=== PATIENT | female | born 1980 | race Caucasian/White ===

== ENCOUNTER 2018-09-04 16:42 | Emergency (ER) | payer MEDICAID ==
[~2018-09-04] VITALS: Ht 165.1 cm; Wt 100.0 kg
[2018-09-04] MEDS ORDERED: morphine 4 MG/ML inj SYRINge IM ONE (17:10)
[2018-09-04] MEDS ORDERED: ondansetron 4mg rapidly disintigrating tab PO ONE (17:10)
[2018-09-04] MEDS ORDERED: BUPIVAcaine/PF 2.5 mg/ml (0.25%) 30ml vial IJ ONE (17:25)
[2018-09-04] MEDS ORDERED: BUPIVAcaine/PF 2.5mg/ml (0.25%) 10ml vial IJ ONE (17:35)
[2018-09-04] MEDS ORDERED: etomidate 2mg/ml inj. IV ONE (19:30)
[2018-09-04] MEDS ORDERED: HYDR-4383 PO (20:08)
[2018-09-04 20:16] VITALS: BP 138/79
== END 2018-09-04 20:27 | disposition home or self-care (01) ==
LOC: ER 16:43
DX: S52.592A Other fractures of lower end of left radius, initial encounter for closed fracture (principal); S52.612A Displaced fracture of left ulna styloid process, initial encounter for closed fracture; Z88.2 Allergy status to sulfonamides; W01.198A Fall on same level from slipping, tripping and stumbling with subsequent striking against other object, initial encounter; Y93.89 Activity, other specified; Y92.89 Other specified places as the place of occurrence of the external cause; Y99.9 Unspecified external cause status
CPT/HCPCS: 25605; 73100; 73110; 96372; 99285; J2270; J3490

== ENCOUNTER 2018-09-09 13:17 | Outpatient (CLI) | payer MEDICAID ==
[~2018-09-09] VITALS: Ht 165.1 cm; Wt 112.4 kg
[2018-09-09 13:00] VITALS: BP 118/74
[~2018-09-09 13:17] MED LIST: HYDR-4383 PO
[2018-09-09 16:58] VITALS: BP 118/74
[2018-09-15] MEDS ORDERED: HYDR-3965 PO (12:23)
== END 2018-09-09 13:42 | disposition home or self-care (01) ==
LOC: ORTHO 13:17
PROVIDERS: ATTEND Nurse Practitioner Family
DX: S52.612A Displaced fracture of left ulna styloid process, initial encounter for closed fracture (principal); S59.292A Other physeal fracture of lower end of radius, left arm, initial encounter for closed fracture; E78.00 Pure hypercholesterolemia, unspecified; F17.200 Nicotine dependence, unspecified, uncomplicated; Z88.2 Allergy status to sulfonamides; Z90.49 Acquired absence of other specified parts of digestive tract; W19.XXXA Unspecified fall, initial encounter; Y93.89 Activity, other specified; Y92.89 Other specified places as the place of occurrence of the external cause; Y99.8 Other external cause status
CPT/HCPCS: 99213

== ENCOUNTER 2018-09-16 11:55 | Day surgery (SDC) | payer MEDICAID ==
[2018-09-12 14:41] LABS: BASOPHILS % (AUTO) 0.3 % (0-1); EOSINOPHILS # (AUTO) 0.2 X10'3 (0-0.9); EOSINOPHILS % (AUTO) 2.7 % (0-6); LYMPHOCYTES % (AUTO) 24.4 % (21-51); MEAN CORPUSCULAR HGB CONC 33.3 % (33.0-36.5); MEAN CORPUSCULAR VOLUME 78.3 FL (78-98); MEAN PLATELET VOLUME 7.9 FL (7.4-10.4); MONOCYTES # (AUTO) 0.5 X10'3 (0-0.9); MONOCYTES % (AUTO) 6.1 % (2-12); NEUTROPHILS # (AUTO) 5.6 X10'3 (1.8-7.7); NEUTROPHILS % (AUTO) 66.5 % (42-75); PRE OP HEMATOCRIT 32.2 % (35.0-45.0); PRE OP PLATELET COUNT 297 X10'3 (140-440); RED BLOOD COUNT 4.12 X10'6 (4.20-5.60); RED CELL DISTRIBUTION WIDTH 15.3 % (11.5-14.5)
[2018-09-12 14:44] LABS: PRE OP HEMOGLOBIN 10.7 g/dL (12.0-16.0)
[2018-09-12 14:57] LABS: ALBUMIN 3.7 G/DL (3.4-5.0); ALBUMIN/GLOBULIN RATIO 1.1 (1.1-1.5); ALKALINE PHOSPHATASE 63 IU/L (46-116); BLOOD UREA NITROGEN 12 MG/DL (7-18); BUN/CREATININE RATIO 12.5 (6.6-38.0); CALCIUM 8.7 MG/DL (8.5-10.1); CHLORIDE 107 MMOL/L (99-107); CREATININE 0.96 MG/DL (0.40-0.90); PRE OP ALT 24 U/L (30-65); PRE OP ANION GAP 8 (8-16); PRE OP AST 16 U/L (10-37); PRE OP BILIRUB, TOTAL 0.3 MG/DL (0.0-1.0); PRE OP GLUCOSE 107 MG/DL (70-104); PRE OP POTASSIUM 3.8 MMOL/L (3.4-5.1); PRE OP SODIUM 141 MMOL/L (135-145); TOTAL CARBON DIOXIDE 26.1 MMOL/L (24-32); eGFR 65 ML/MIN
[2018-09-16] VITALS (9 sets, daily range): BP systolic 130–149; BP diastolic 80–90
[~2018-09-16] VITALS: Ht 165.1 cm; Wt 113.7 kg
[~2018-09-16 11:55] MED LIST changes: +HYDR-3965 PO; -HYDR-4383 PO; +cefazolin/dext.iso 2gm/100 ML IV ONE; +famotidine 20mg tablet PO ONE; +ringers solution, lacted 1,000 ML IV SCH; +vancomycin inj 1,500 MG in normal saline 300ml IV soln IV ONE
[2018-09-16] MEDS ORDERED: LIDOcaine 1% (10mg/ml) 2ml vial ONE (13:14)
[2018-09-16] MEDS ORDERED: BUPIVAcaine/PF 2.5mg/ml (0.25%) 10ml vial ONE (13:57)
[2018-09-16] MEDS ORDERED: ringers solution, lacted 1,000 ML IV SCH (14:56)
[2018-09-16] MEDS ORDERED: proCHLORperazine 10 MG/2 ml inj IV PRN (15:00)
[2018-09-16] MEDS ORDERED: ondansetron/PF 4mg/2ml inj IV PRN (15:00)
[2018-09-16] MEDS ORDERED: morphine 4 MG/ML inj SYRINge IV PRN ×2 (15:00)
[2018-09-16] MEDS ORDERED: meperidine/PF 25mg/ml syringe IV PRN ×3 (15:00)
[2018-09-16] MEDS ORDERED: sevoflurane 250ml liquid IH ONE (16:35)
[2018-09-16] MEDS ORDERED: MIDAZolam 5mg/5ml vial ONE (16:36)
[2018-09-16] MEDS ORDERED: ROPIVAcaine 0.5% (5mg/ml) 30ml vial ONE ×2 (16:36→17:03)
[2018-09-16] MEDS ORDERED: fentaNYL/PF 50MCG/1 ML 2ML syringe ONE ×2 (16:36→17:19)
[2018-09-16] MEDS ORDERED: LIDOcaine 1%/PF 5ML 10 MG/ML VIAL ONE (16:55)
[2018-09-16] MEDS ORDERED: propofol inj 20 ML IV ONE (16:55)
[2018-09-16] MEDS ORDERED: ondansetron/PF 4mg/2ml inj ONE (18:20)
[2018-09-16] MEDS ORDERED: ketorolac trometh. 30mg/ml inj. ONE (18:20)
[2018-09-16] MEDS ORDERED: dexamethasone sod phosphate 4mg/ml inj. ONE (18:20)
[2018-09-16] MEDS ORDERED: HYDROcodone/acetaminophen 10/325mg tab PO ONE (19:20)
== END 2018-09-16 19:47 | disposition home or self-care (01) ==
LOC: PAS 11:55
PROVIDERS: ATTEND Orthopaedic Surgery
DX: S52.552A Other extraarticular fracture of lower end of left radius, initial encounter for closed fracture (principal); M25.032 Hemarthrosis, left wrist; G89.18 Other acute postprocedural pain; E66.01 Morbid (severe) obesity due to excess calories; E78.00 Pure hypercholesterolemia, unspecified; Z88.2 Allergy status to sulfonamides; Z86.69 Personal history of other diseases of the nervous system and sense organs; Z90.49 Acquired absence of other specified parts of digestive tract; Z68.41 Body mass index [BMI] 40.0-44.9, adult; Z98.51 Tubal ligation status; Z79.891 Long term (current) use of opiate analgesic; Z98.890 Other specified postprocedural states; W19.XXXA Unspecified fall, initial encounter; Y93.89 Activity, other specified; Y92.89 Other specified places as the place of occurrence of the external cause; Y99.8 Other external cause status
CPT/HCPCS: 25607; 36415; 64415; 71046; 80053; 85025; 93005; A6449; C1713; J0690; J1100; J1885; J2001; J2175; J2250; J2405; J2704; J3010; J3370; J3490; A7000; J2795; J7120

== ENCOUNTER 2018-09-30 11:37 | Outpatient (CLI) | payer MEDICAID ==
[2018-09-30 11:37] VITALS: BP 102/71
[~2018-09-30 11:37] MED LIST changes: -cefazolin/dext.iso 2gm/100 ML IV ONE; -famotidine 20mg tablet PO ONE; -ringers solution, lacted 1,000 ML IV SCH; -vancomycin inj 1,500 MG in normal saline 300ml IV soln IV ONE
== END 2018-09-30 12:39 | disposition home or self-care (01) ==
LOC: ORTHO 11:37
PROVIDERS: ATTEND Nurse Practitioner Family
DX: S52.592D Other fractures of lower end of left radius, subsequent encounter for closed fracture with routine healing (principal); S52.612D Displaced fracture of left ulna styloid process, subsequent encounter for closed fracture with routine healing; Z56.0 Unemployment, unspecified; Z88.2 Allergy status to sulfonamides; W18.39XD Other fall on same level, subsequent encounter
CPT/HCPCS: 73100; 99213; A4590

== ENCOUNTER 2018-10-15 09:58 | Outpatient (CLI) | payer MEDICAID ==
[2018-10-15 09:45] VITALS: BP 119/81
== END 2018-10-15 10:42 | disposition home or self-care (01) ==
LOC: ORTHO 09:58
PROVIDERS: ATTEND Nurse Practitioner Family
DX: S52.592D Other fractures of lower end of left radius, subsequent encounter for closed fracture with routine healing (principal); S52.612G Displaced fracture of left ulna styloid process, subsequent encounter for closed fracture with delayed healing; Z88.2 Allergy status to sulfonamides; W19.XXXD Unspecified fall, subsequent encounter
CPT/HCPCS: 73100; 99213; A4590

== ENCOUNTER 2018-11-05 10:08 | Outpatient (CLI) | payer MEDICAID ==
[2018-11-05 11:01] VITALS: BP 125/76
== END 2018-11-05 11:34 | disposition home or self-care (01) ==
LOC: ORTHO 10:08
PROVIDERS: ATTEND Nurse Practitioner Family
DX: S52.592D Other fractures of lower end of left radius, subsequent encounter for closed fracture with routine healing (principal); S52.512 Displaced fracture of left radial styloid process; M19.032 Primary osteoarthritis, left wrist; Z56.0 Unemployment, unspecified; Z88.2 Allergy status to sulfonamides; W19.XXXD Unspecified fall, subsequent encounter
CPT/HCPCS: 73100; 99213

== ENCOUNTER 2018-11-19 10:17 | Outpatient (CLI) | payer MEDICAID ==
[2018-11-19 10:17] VITALS: BP 138/82
== END 2018-11-19 10:49 | disposition home or self-care (01) ==
LOC: ORTHO 10:17
PROVIDERS: ATTEND Nurse Practitioner Family
DX: S52.592G Other fractures of lower end of left radius, subsequent encounter for closed fracture with delayed healing (principal); S52.612G Displaced fracture of left ulna styloid process, subsequent encounter for closed fracture with delayed healing; Z56.0 Unemployment, unspecified; Z88.2 Allergy status to sulfonamides; W19.XXXD Unspecified fall, subsequent encounter
CPT/HCPCS: 73100; 99213

== ENCOUNTER 2018-12-02 08:58 | Outpatient (CLI) | payer MEDICAID ==
[2018-12-02 08:48] VITALS: BP 135/80
== END 2018-12-02 09:37 | disposition home or self-care (01) ==
LOC: ORTHO 08:58
PROVIDERS: ATTEND Nurse Practitioner Family
DX: S52.592D Other fractures of lower end of left radius, subsequent encounter for closed fracture with routine healing (principal); S52.612D Displaced fracture of left ulna styloid process, subsequent encounter for closed fracture with routine healing; Z98.890 Other specified postprocedural states; Z88.2 Allergy status to sulfonamides; W19.XXXD Unspecified fall, subsequent encounter
CPT/HCPCS: 73100; G0463

== ENCOUNTER 2018-12-23 08:54 | Outpatient (CLI) | payer MEDICAID ==
[2018-12-23 08:51] VITALS: BP 145/91
== END 2018-12-23 09:58 | disposition home or self-care (01) ==
LOC: ORTHO 08:54
PROVIDERS: ATTEND Nurse Practitioner Family
DX: S52.592D Other fractures of lower end of left radius, subsequent encounter for closed fracture with routine healing (principal); S52.612D Displaced fracture of left ulna styloid process, subsequent encounter for closed fracture with routine healing; Z56.0 Unemployment, unspecified; Z88.2 Allergy status to sulfonamides; W19.XXXD Unspecified fall, subsequent encounter
CPT/HCPCS: 73100; 99213

== ENCOUNTER 2019-01-20 09:15 | Outpatient (CLI) | payer MEDICAID ==
[2019-01-20 09:01] VITALS: BP 131/89
== END 2019-01-20 09:21 | disposition home or self-care (01) ==
LOC: ORTHO 09:15
PROVIDERS: ATTEND Nurse Practitioner Family
DX: S52.592D Other fractures of lower end of left radius, subsequent encounter for closed fracture with routine healing (principal); S52.612K Displaced fracture of left ulna styloid process, subsequent encounter for closed fracture with nonunion; G40.89 Other seizures; Z98.890 Other specified postprocedural states; Z88.2 Allergy status to sulfonamides; W19.XXXD Unspecified fall, subsequent encounter
CPT/HCPCS: 73100; 99213

== ENCOUNTER 2019-10-30 17:40 | Emergency (ER) | payer MEDICAID ==
[~2019-10-30] VITALS: Ht 165.1 cm; Wt 100.0 kg
[2019-10-31] MEDS ORDERED: ondansetron 4mg rapidly disintigrating tab PO ONE (00:10)
[2019-10-31] MEDS ORDERED: acetaminophen 325mg tablet PO ONE (00:10)
[2019-10-31] MEDS ORDERED: albuterol 2.5 MG/3 ML nebule NEB ONE (01:35)
[2019-10-31] MEDS ORDERED: ondansetron/PF 4mg/2ml inj IV ONE (01:35)
[2019-10-31] MEDS ORDERED: morphine 2 MG/ML inj. syringe IV PRN (01:35)
[2019-10-31] MEDS ORDERED: normal saline 1000ML IV soln IVB ONE (01:35)
[2019-10-31 02:17] LABS: BASOPHILS % (AUTO) 0.3 % (0-1); EOSINOPHILS % (AUTO) 0.3 % (0-6); HEMATOCRIT 32.8 % (35.0-45.0); HEMOGLOBIN 10.9 g/dl (12.0-16.0); LYMPHOCYTES # (AUTO) 1.8 X10'3 (1.1-4.8); LYMPHOCYTES % (AUTO) 21.7 % (21-51); MEAN CORPUSCULAR HEMOGLOBIN 25.1 PG (27.0-31.0); MEAN CORPUSCULAR HGB CONC 33.4 g/dL (33.0-36.5); MEAN CORPUSCULAR VOLUME 75.3 FL (78-98); MONOCYTES # (AUTO) 0.8 X10'3 (0-0.9); MONOCYTES % (AUTO) 9.7 % (2-12); NEUTROPHILS # (AUTO) 5.7 X10'3 (1.8-7.7); PLATELET COUNT 227 X10'3 (140-440); RED BLOOD COUNT 4.35 X10'6 (4.20-5.60); RED CELL DISTRIBUTION WIDTH 16.1 % (11.5-14.5); WHITE BLOOD COUNT 8.3 X10'3 (4.5-11.0)
[2019-10-31 02:26] LABS: ALANINE AMINOTRANSFERASE 40 U/L (12-78); ALBUMIN 3.8 G/DL (3.4-5.0); ALKALINE PHOSPHATASE 75 IU/L (46-116); ANION GAP 9 (8-16); ASPARTATE AMINO TRANSFERASE 24 U/L (10-37); BILIRUBIN,TOTAL 0.4 MG/DL (0.1-1.0); BLOOD UREA NITROGEN 7 MG/DL (7-18); BUN/CREATININE RATIO 7.4 (6.6-38.0); CALCIUM 8.5 MG/DL (8.5-10.1); CHLORIDE 102 MMOL/L (99-107); CREATININE 0.94 MG/DL (0.40-0.90); GLUCOSE 121 MG/DL (70-104); MAGNESIUM 2.1 MG/DL (1.5-2.4); POTASSIUM 3.2 MMOL/L (3.5-5.1); SODIUM 137 MMOL/L (135-145); TOTAL CARBON DIOXIDE 25.8 MMOL/L (24-32); TOTAL PROTEIN 7.5 G/DL (6.4-8.2); eGFR 67 ML/MIN
[2019-10-31] MEDS ORDERED: ONDA4TAB6 PO (02:33)
[2019-10-31 03:46] VITALS: BP 112/49
== END 2019-10-31 03:53 | disposition home or self-care (01) ==
LOC: ER 17:41
DX: E87.6 Hypokalemia (principal); J10.1 Influenza due to other identified influenza virus with other respiratory manifestations; E78.00 Pure hypercholesterolemia, unspecified; R11.2 Nausea with vomiting, unspecified; Z56.0 Unemployment, unspecified; Z90.49 Acquired absence of other specified parts of digestive tract; Z88.2 Allergy status to sulfonamides
CPT/HCPCS: 36415; 71046; 80053; 83735; 85025; 87502; 87503; 94640; 96360; 99284; J7030; 94760

== ENCOUNTER 2022-11-25 02:22 | Emergency (ER) | payer MEDICAID ==
[~2022-11-25] VITALS: Ht 165.1 cm; Wt 81.8 kg
[~2022-11-25 02:22] MED LIST changes: +ONDA4TAB6 PO
[2022-11-25 02:29] VITALS: BP 132/79
[2022-11-25] MEDS ORDERED: normal saline 1000ML IV soln IVB ONE (02:45)
[2022-11-25] MEDS ORDERED: diphenhydrAMINE 50 mg/ml inj IV ONE (02:55)
[2022-11-25] MEDS ORDERED: acetaminophen 325mg tablet PO ONE (02:55)
[2022-11-25 03:15] LABS: BASOPHILS % (AUTO) 0.4 % (0-1); EOSINOPHILS # (AUTO) 0.2 X10'3 (0-0.9); EOSINOPHILS % (AUTO) 1.9 % (0-6); HEMATOCRIT 33.7 % (35.0-45.0); HEMOGLOBIN 11.5 g/dl (12.0-16.0); LYMPHOCYTES # (AUTO) 2.3 X10'3 (1.1-4.8); LYMPHOCYTES % (AUTO) 21.5 % (21-51); MEAN CORPUSCULAR HEMOGLOBIN 27.1 PG (27.0-31.0); MEAN CORPUSCULAR HGB CONC 34.1 g/dL (33.0-36.5); MEAN CORPUSCULAR VOLUME 79.4 FL (78-98); MEAN PLATELET VOLUME 7.6 FL (7.4-10.4); MONOCYTES % (AUTO) 9.1 % (2-12); NEUTROPHILS # (AUTO) 7.1 X10'3 (1.8-7.7); NEUTROPHILS % (AUTO) 67.1 % (42-75); PLATELET COUNT 258 X10'3 (140-440); RED BLOOD COUNT 4.24 X10'6 (4.20-5.60); WHITE BLOOD COUNT 10.6 X10'3 (4.5-11.0)
[2022-11-25 03:27] LABS: ALANINE AMINOTRANSFERASE 22 U/L (12-78); ALBUMIN 3.9 G/DL (3.4-5.0); ALBUMIN/GLOBULIN RATIO 1.1 (1.1-1.5); ALKALINE PHOSPHATASE 75 IU/L (46-116); ANION GAP 10 (8-16); ASPARTATE AMINO TRANSFERASE 19 U/L (10-37); BILIRUBIN,TOTAL 0.3 MG/DL (0.1-1.0); BLOOD UREA NITROGEN 13 MG/DL (7-18); BUN/CREATININE RATIO 16.3 (6.6-38.0); CALCIUM 8.7 MG/DL (8.5-10.1); CHLORIDE 104 MMOL/L (99-107); GLUCOSE 105 MG/DL (70-104); LIPASE 70 U/L (73-393); POTASSIUM 3.4 MMOL/L (3.5-5.1); SODIUM 139 MMOL/L (135-145); TOTAL CARBON DIOXIDE 25.3 MMOL/L (24-32); TOTAL PROTEIN 7.3 G/DL (6.4-8.2); URINE HCG NEGATIVE (NEG); eGFR 79 ML/MIN
== END 2022-11-25 04:55 | disposition home or self-care (01) ==
LOC: ER 02:23
DX: J06.9 Acute upper respiratory infection, unspecified (principal); Z20.822 Contact with and (suspected) exposure to COVID-19; J02.9 Acute pharyngitis, unspecified; R11.10 Vomiting, unspecified
CPT/HCPCS: 36415; 71045; 80053; 81025; 83690; 85025; 87502; 87503; 87635; 96361; 96374; 99284; C9803; J1200; J7030; A4358

== ENCOUNTER 2023-09-15 22:00 | Emergency (ER) | payer MEDICAID ==
[~2023-09-15] VITALS: Ht 165.1 cm; Wt 108.0 kg
[2023-09-15] MEDS ORDERED: acetaminophen 325mg tablet PO ONE (22:15)
[2023-09-15 22:33] LABS: URINE HCG NEGATIVE (NEG)
[2023-09-15 22:52] LABS: BILIRUBIN,URINE NEGATIVE (Neg); CLARITY,URINE CLOUDY (Clear); COLOR,URINE STRAW (Yellow); GLUCOSE, URINE NEGATIVE (Neg); KETONES,URINE NEGATIVE (Neg); LEUKOCYTE ESTERASE ,URINE SMALL (Neg); NITRITES, URINE NEGATIVE (Neg); OCCULT BLOOD,URINE MODERATE (Neg); PH,URINE 7.5 (4.8-8.0); PROTEIN,URINE 30 mg/dl (Neg)
[2023-09-15 22:59] LABS: UA COLLECTION TYPE CLN CATCH MIDSTREAM
[2023-09-15 23:00] LABS: MUCUS STRANDS MODERATE /LPF (Neg); SQUAMOUS EPITHELIAL CELL,UR MANY /LPF (FEW)
[2023-09-15 23:01] LABS: BACTERIA,URINE 3+ /HPF (Neg); WBC,URINE TNTC /HPF (0-4)
[2023-09-15] MEDS ORDERED: CefTRIAXone/D5W-Rocephin 1gm 50 ML IV ONE (23:35)
[2023-09-15] MEDS ORDERED: ondansetron/PF 4mg/2ml inj IV ONE (23:35)
[2023-09-15] MEDS ORDERED: ketorolac trometh. 30mg/ml inj. IV ONE (23:35)
[2023-09-15] MEDS ORDERED: normal saline 1000ml 1,000 ML IV ONE (23:35)
[2023-09-15 23:37] LABS: BASOPHILS % (AUTO) 0.3 % (0-1); EOSINOPHILS % (AUTO) 0.2 % (0-6); HEMATOCRIT 35.4 % (35.0-45.0); HEMOGLOBIN 11.8 g/dl (12.0-16.0); LYMPHOCYTES # (AUTO) 1.2 X10'3 (1.1-4.8); LYMPHOCYTES % (AUTO) 10.8 % (21-51); MEAN CORPUSCULAR HEMOGLOBIN 26.8 PG (27.0-31.0); MEAN CORPUSCULAR HGB CONC 33.2 g/dL (33.0-36.5); MEAN CORPUSCULAR VOLUME 80.7 FL (78-98); MEAN PLATELET VOLUME 8.1 FL (7.4-10.4); MONOCYTES # (AUTO) 0.9 X10'3 (0-0.9); MONOCYTES % (AUTO) 8.2 % (2-12); NEUTROPHILS # (AUTO) 8.9 X10'3 (1.8-7.7); NEUTROPHILS % (AUTO) 80.5 % (42-75); PLATELET COUNT 213 X10'3 (140-440); RED BLOOD COUNT 4.39 X10'6 (4.20-5.60); RED CELL DISTRIBUTION WIDTH 14.9 % (11.5-14.5)
[2023-09-15 23:43] LABS: ALANINE AMINOTRANSFERASE 28 U/L (12-78); ALBUMIN 3.5 G/DL (3.4-5.0); ALKALINE PHOSPHATASE 81 IU/L (46-116); ANION GAP 9 (8-16); ASPARTATE AMINO TRANSFERASE 24 U/L (10-37); BILIRUBIN,TOTAL 0.4 MG/DL (0.1-1.0); BLOOD UREA NITROGEN 12 MG/DL (7-18); BUN/CREATININE RATIO 12.9 (10.0-20.0); CALCIUM 8.9 MG/DL (8.5-10.1); CHLORIDE 102 MMOL/L (99-107); CREATININE 0.93 MG/DL (0.40-0.90); GLUCOSE 116 MG/DL (70-104); LIPASE 23 U/L (16-77); POTASSIUM 3.8 MMOL/L (3.5-5.1); SODIUM 135 MMOL/L (135-145); eCRCL 71 ML/MIN; eGFR 66 ML/MIN
[2023-09-16 00:17] LABS: BILIRUBIN,URINE NEGATIVE (Neg); CLARITY,URINE CLOUDY (Clear); COLOR,URINE STRAW (Yellow); GLUCOSE, URINE NEGATIVE (Neg); KETONES,URINE NEGATIVE (Neg); LEUKOCYTE ESTERASE ,URINE MODERATE (Neg); NITRITES, URINE NEGATIVE (Neg); OCCULT BLOOD,URINE SMALL (Neg); PROTEIN,URINE NEGATIVE (Neg); UROBILINOGEN,URINE 0.2 E.U/dL (0.2-1.0)
[2023-09-16 00:22] LABS: UA COLLECTION TYPE CLN CATCH MIDSTREAM
[2023-09-16 00:24] LABS: SQUAMOUS EPITHELIAL CELL,UR MANY /LPF (FEW)
[2023-09-16 00:25] LABS: TRANSITIONAL EPI CELLS,URINE FEW /HPF; WBC,URINE 30-50 /HPF (0-4)
[2023-09-16 00:26] LABS: BACTERIA,URINE 2+ /HPF (Neg); RBC,URINE 0-2 /HPF (0-2)
[2023-09-16] MEDS ORDERED: normal saline 1000ml 1,000 ML IV ONE (01:45)
[2023-09-16] MEDS ORDERED: ONDA4TAB12 PO (02:49)
[2023-09-16] MEDS ORDERED: IBUP-1985 PO (02:49)
[2023-09-16] MEDS ORDERED: HYDR-3965 PO (02:49)
[2023-09-16] MEDS ORDERED: CEPH-585 PO (02:49)
[2023-09-16 03:01] VITALS: BP 107/70; PULSE 80; RESP 18; TEMP 98.4; O2SAT 95
== END 2023-09-16 03:04 | disposition home or self-care (01) ==
LOC: ER 22:02
DX: N10 Acute pyelonephritis (principal)
CPT/HCPCS: 36415; 74176; 80053; 81001; 81025; 83605; 83690; 84484; 85025; 87040; 96361; 96365; 96375; 99285; J0696; J1885; J2405; J7030